=== PATIENT | female | born 1990 | race Two or more races ===

== ENCOUNTER 2017-10-07 07:42 | Emergency (ER) | payer MEDICAID ==
[~2017-10-07] VITALS: Ht 157.5 cm; Wt 90.7 kg
[2017-10-07] MEDS ORDERED: Acetaminophen 500mg (ES) tab ORAL ONE (08:00)
--- NOTE | 2017-10-07 08:00 | Emergency Room Report ---
History of Present Illness General Chief Complaint: Dizziness Source: Patient Present Illness HPI Patient states that she is 7 months . She is breast-feeding currently. She states that she woke up this morning and had bodyaches and chills. She states she also felt fatigued and has generalized weakness. She denies cough or congestion. She denies abdominal pain. She denies chest pain or shortness of breath. She denies dysuria or hematuria. She denies headache or neck pain. She does have multiple bodyaches. She states that she went to work but had to leave because she wasn't feeling well. She denies breast pain or tenderness or erythema. She has no other complaints. Allergies: Coded Allergies: No Known Allergies (Unverified , 10/07/17) Patient History Past Medical History: none, see triage record Past Surgical History: none Pertinent Family History: none Social History: Denies: smoking, alcohol use, drug use Last Menstrual Period: 10/03/17 Reviewed Nursing Documentation: PMH: Agreed; PSxH: Agreed Nursing Documentation-PMH Past Medical History: No Stated History Review of Systems All Other Systems: negative except mentioned in HPI Physical Exam Vital Signs Date Time Temp Pulse Resp B/P (MAP) Pulse Ox O2 Delivery O2 Flow Rate FiO2 10/07/17 07:47 99.5 105 19 108/73 96 Room Air 99.5 Sp02 EP Interpretation: reviewed, normal General Appearance: no apparent distress, alert, GCS 15, non-toxic Head: normocephalic, atraumatic Eyes: bilateral eye normal inspection, bilateral eye PERRL ENT: hearing grossly normal, normal pharynx, no angioedema, normal voice Neck: full range of motion, supple/symm/no masses Respiratory: chest non-tender, lungs clear, normal breath sounds, speaking full sentences Cardiovascular #1: regular rate, rhythm, no edema Gastrointestinal: normal bowel sounds, non tender, soft, non-distended, no guarding, no rebound Rectal: deferred Musculoskeletal: back normal, gait/station normal, normal range of motion, non- tender Neurologic: alert, oriented x3, responsive, motor strength/tone normal, sensory intact, speech normal Psychiatric: judgement/insight normal, memory normal, mood/affect normal, no suicidal/homicidal ideation Skin: normal color, no rash, warm/dry, well hydrated Medical Decision Making Diagnostic Impression: Primary Impression: Viral syndrome Additional Impression: Fever ER Course This patient has a clinical presentation consistent with viral syndrome. Symptoms are nonspecific. There are no red flags on physical exam that would make me concerned for serious illness. This includes no evidence of meningitis , intra-abdominal process that would make me concerned for appendicitis or diverticulitis or other surgical or emergency etiology. Overall, this patient' s presentation is benign and the patient is nontoxic. Laboratory workup is negative other than a leukocytosis. There is no evidence of an emergency medical condition. The patient is given close return precautions and followup instructions. Laboratory Tests Test 10/07/17 08:17 White Blood Count 17.9 K/UL (4.8-10.8) H Red Blood Count 4.93 M/UL (4.20-5.40) Hemoglobin 13.8 G/DL (12.0-16.0) Hematocrit 42.2 % (37.0-47.0) Mean Corpuscular Volume 86 FL (80-99) Mean Corpuscular Hemoglobin 28.0 PG (27.0-31.0) Mean Corpuscular Hemoglobin Concent 32.7 G/DL (32.0-36.0) Red Cell Distribution Width 13.2 % (11.6-14.8) Platelet Count 223 K/UL (150-450) Mean Platelet Volume 8.5 FL (6.5-10.1) Neutrophils (%) (Auto) 83.5 % (45.0-75.0) H Lymphocytes (%) (Auto) 9.9 % (20.0-45.0) L Monocytes (%) (Auto) 5.4 % (1.0-10.0) Eosinophils (%) (Auto) 0.6 % (0.0-3.0) Basophils (%) (Auto) 0.6 % (0.0-2.0) Urine Color Pale yellow Urine Appearance Clear Urine pH 6.5 (4.5-8.0) Urine Specific Floral 1.005 (1.005-1.035) Urine Protein Negative (NEGATIVE) Urine Glucose (UA) Negative (NEGATIVE) Urine Ketones Negative (NEGATIVE) Urine Occult Blood 3+ (NEGATIVE) H Urine Nitrite Negative (NEGATIVE) Urine Bilirubin Negative (NEGATIVE) Urine Urobilinogen Normal MG/DL (0.0-1.0) Urine Leukocyte Esterase Negative (NEGATIVE) Urine RBC 2-4 /HPF (0 - 2) H Urine WBC 0-2 /HPF (0 - 2) Urine Squamous Epithelial Cells Few /LPF (NONE/OCC) Urine Bacteria Occasional /HPF (NONE) Urine HCG, Qualitative Negative (NEGATIVE) Sodium Level 139 MMOL/L (136-145) Potassium Level 3.9 MMOL/L (3.5-5.1) Chloride Level 102 MMOL/L (98-107) Carbon Dioxide Level 26 MMOL/L (21-32) Anion Gap 11 mmol/L (5-15) Blood Urea Nitrogen 16 mg/dL (7-18) Creatinine 0.6 MG/DL (0.55-1.30) Estimate Glomerular Filtration Rate > 60 mL/min (>60) Glucose Level 97 MG/DL (74-106) Calcium Level 9.4 MG/DL (8.5-10.1) Total Bilirubin 0.5 MG/DL (0.2-1.0) Aspartate Amino Transferase (AST) 18 U/L (15-37) Alanine Aminotransferase (ALT) 28 U/L (12-78) Alkaline Phosphatase 117 U/L (46-116) H Total Creatine Kinase 93 U/L (26-308) Creatine Kinase MB 0.6 NG/ML (0.0-3.6) Creatine Kinase MB Relative Index 0.6 Troponin I 0.000 ng/mL (0.000-0.056) Total Protein 8.4 G/DL (6.4-8.2) H Albumin 4.0 G/DL (3.4-5.0) Globulin 4.4 g/dL Albumin/Globulin Ratio 0.9 (1.0-2.7) L EKG Diagnostic Results Rate: normal Rhythm: NSR ST Segments: no acute changes Rhythm Strip Diag. Results EP Interpretation: yes Rate: 100's Rhythm: no PVC's, no ectopy, other - S.tachycardia Last Vital Signs Date Time Temp Pulse Resp B/P (MAP) Pulse Ox O2 Delivery O2 Flow Rate FiO2 10/07/17 07:47 99.5 105 19 108/73 96 Room Air 99.5 Disposition: HOME, SELF-CARE Condition: Improved Scripts No Active Prescriptions or Reported Meds Bhavani Cavazos DO Oct 07, 2017 08:00
[2017-10-07 08:48] LABS: BASOPHILS % (AUTO) 0.6 % (0.0-2.0); EOSINOPHILS % (AUTO) 0.6 % (0.0-3.0); HEMATOCRIT 42.2 % (37.0-47.0); HEMOGLOBIN 13.8 G/DL (12.0-16.0); LYMPHOCYTES % (AUTO) 9.9 % (20.0-45.0); MEAN CORPUSCULAR VOLUME 86 FL (80-99); MONOCYTES % (AUTO) 5.4 % (1.0-10.0); NEUTROPHILS % (AUTO) 83.5 % (45.0-75.0); PLATELET COUNT 223 K/UL (150-450); RED BLOOD COUNT 4.93 M/UL (4.20-5.40); RED CELL DISTRIBUTION WIDTH 13.2 % (11.6-14.8); WHITE BLOOD COUNT 17.9 K/UL (4.8-10.8)
[2017-10-07 08:54] LABS: APPEARANCE,URINE CLEAR; BILIRUBIN, URINE NEGATIVE (NEGATIVE); COLOR,URINE PALE YELLOW; GLUCOSE, URINE (UA) NEGATIVE (NEGATIVE); KETONES,URINE NEGATIVE (NEGATIVE); LEUKOCYTE ESTERASE ,URINE NEGATIVE (NEGATIVE); NITRITE,URINE NEGATIVE (NEGATIVE); PH,URINE 6.5 (4.5-8.0); PROTEIN,URINE NEGATIVE (NEGATIVE); UROBILINOGEN,URINE NORMAL MG/DL (0.0-1.0)
[2017-10-07 08:55] LABS: ANION GAP 11 mmol/L (5-15); BLOOD UREA NITROGEN 16 mg/dL (7-18); CALCIUM 9.4 MG/DL (8.5-10.1); CARBON DIOXIDE 26 MMOL/L (21-32); CHLORIDE 102 MMOL/L (98-107); CREATININE 0.6 MG/DL (0.55-1.30); POTASSIUM 3.9 MMOL/L (3.5-5.1); SODIUM 139 MMOL/L (136-145)
[2017-10-07 09:08] LABS: ALANINE AMINOTRANSFERASE 28 U/L (12-78); ALBUMIN/GLOBULIN RATIO 0.9 (1.0-2.7); ALKALINE PHOSPHATASE 117 U/L (46-116); ASPARTATE AMINO TRANSFERASE 18 U/L (15-37); BILIRUBIN,TOTAL 0.5 MG/DL (0.2-1.0); CKMB 0.6 NG/ML (0.0-3.6); CREATINE KINASE 93 U/L (26-308)
[2017-10-07 09:09] VITALS: BP 103/73
[2017-10-07 09:38] VITALS: BP 103/73
--- NOTE | 2017-10-09 15:48 | Cardiology Report ---
APPROVED REPORT EKG Measurement Heart [id number] Sinus tachycardia Low voltage QRS Nonspecific ST and T wave abnormality Abnormal ECG
== END 2017-10-07 09:39 | disposition home or self-care (01) ==
LOC: EMR 08:05
DX: B34.9 Viral infection, unspecified (principal)
CPT/HCPCS: 36415; 80053; 81003; 81025; 82550; 82553; 84484; 85025; 93005; 96360; 99284

== ENCOUNTER 2018-09-30 09:53 | Emergency (ER) | payer MEDICAID ==
[~2018-09-30] VITALS: Ht 162.6 cm; Wt 102.1 kg
[2018-09-30 10:12] VITALS: BP 115/79
--- NOTE | 2018-09-30 10:13 | NUR ---
ED Nurse Note: pt walked in due to lower back pain started 8 days ago. pt denies trauma. pt complains of 8/10 pain from lower back to bilateral legs.. denies being . pt stated she took motrin but didnt help. will continue to monitor.
[2018-09-30] MEDS ORDERED: Cyclobenzaprine 10mg Tab ORAL ONE (10:30)
--- NOTE | 2018-09-30 10:37 | NUR ---
ED Nurse Note: pt was medicated as ordered and pt able to tolerate po meds.
--- NOTE | 2018-09-30 10:52 | NUR ---
ED Nurse Note: hillary seen and examined pt and discussed with pt the need to check for urine and xray for her lower back. will continue to monitor.
--- NOTE | 2018-09-30 10:53 | Emergency Room Report ---
History of Present Illness General Chief Complaint: Pain Source: Patient Present Illness HPI 28-year-old female, Estonian speaking only, history obtained using language line , reports she is been having low back pain for about 8 days, sometimes radiates down both legs, she was working with a previous job that required heavy lifting , reports she took ibuprofen with partial relief, denies any numbness, tingling , weakness, does report the pain is worse when she moves or bends over, she denies bowel bladder incontinence, urinary symptoms, fevers chills, nausea, vomiting, abdominal pain, or obvious injuries. Allergies: Coded Allergies: No Known Allergies (Unverified , 10/07/17) Patient History Limited by: language barrier, other - Language line used Past Medical History: see triage record Reviewed Nursing Documentation: PMH: Agreed; PSxH: Agreed Nursing Documentation-PMH Past Medical History: No Stated History Review of Systems All Other Systems: negative except mentioned in HPI Physical Exam Vital Signs Date Time Temp Pulse Resp B/P (MAP) Pulse Ox O2 Delivery O2 Flow Rate FiO2 09/30/18 09:58 98.1 89 17 115/79 (91) 99 Room Air Sp02 EP Interpretation: reviewed, normal General Appearance: no apparent distress, alert, non-toxic Head: normocephalic Eyes: bilateral eye normal inspection, bilateral eye PERRL, bilateral eye EOMI ENT: normal ENT inspection, hearing grossly normal, normal pharynx, no angioedema, normal voice, moist mucus membranes Neck: normal inspection, full range of motion, supple, supple/symm/no masses Respiratory: chest non-tender, lungs clear, normal breath sounds, chest symmetrical, palpation of chest normal Cardiovascular #1: normal peripheral pulses, regular rate, rhythm Cardiovascular #2: 2+ radial (R), 2+ radial (L) Gastrointestinal: normal inspection, non tender, soft, no mass, no guarding, no rebound Rectal: deferred Genitourinary: normal inspection, no CVA tenderness Musculoskeletal: back normal, gait/station normal, normal range of motion, non- tender, no calf tenderness, Juan's Sign negative, other - negative straight leg raising test B/L LE Neurologic: alert, responsive, communications programmer III-XII nml as tested, motor strength/tone normal, sensory intact, normal gait, speech normal, grossly normal Psychiatric: judgement/insight normal, memory normal, mood/affect normal Skin: no rash, normal inspection, warm/dry Lymphatic: no adenopathy Medical Decision Making Diagnostic Impression: Primary Impression: Low back pain ER Course Patient with no red flags for serious etiology of low back pain, normal exam, other than paraspinous muscle tenderness in her lower lumbar spine, suspect patient with possible herniated disc and sciatica-like presentation although straight leg raising test negative, versus just musculoskeletal spasm and strain , she requested a work note to allow her to go back to work without heavy lifting, I will provide this for her, and recommend ibuprofen and Flexeril. UA LE 1+, but few WBC and bacteria, will give macrobid rx, but doubt pyelonephritis. Upreg negative. Will dc home. Other X-Ray Diagnostic Results Other X-Ray Diagnostic Results : X-Ray ordered: Lumbar spine # of Views/Limited Vs Complete: Limited Indication: Pain EP Interpretation: Yes Interpretation: no dislocation, no soft tissue swelling, no fractures, nonspecific bowel gas, no sbo Impression: No acute disease Electronically Signed by: Erasto Walker MD Last Vital Signs Date Time Temp Pulse Resp B/P (MAP) Pulse Ox O2 Delivery O2 Flow Rate FiO2 09/30/18 10:12 98.1 89 17 115/79 99 Room Air Disposition: HOME, SELF-CARE Condition: Stable Scripts No Active Prescriptions or Reported Meds Referrals: NOT CHOSEN DELVIS/,REFERRING (PCP) ERASTO WALKER M.D Sep 30, 2018 10:53
[2018-09-30 11:01] LABS: APPEARANCE,URINE CLEAR; BILIRUBIN, URINE NEGATIVE (NEGATIVE); COLOR,URINE PALE YELLOW; GLUCOSE, URINE (UA) NEGATIVE (NEGATIVE); KETONES,URINE NEGATIVE (NEGATIVE); LEUKOCYTE ESTERASE ,URINE 1+ (NEGATIVE); NITRITE,URINE NEGATIVE (NEGATIVE); PH,URINE 6 (4.5-8.0); PROTEIN,URINE NEGATIVE (NEGATIVE); UROBILINOGEN,URINE NORMAL MG/DL (0.0-1.0)
[2018-09-30] MEDS ORDERED: IBUPROFEN600 MG ORAL (11:25)
[2018-09-30] MEDS ORDERED: CYCLOBENZAPRINE10 MG ORAL (11:25)
[2018-09-30] MEDS ORDERED: NITROFURANTOIN100 M2 ORAL (11:25)
[2018-09-30 12:15] VITALS: BP 115/79
--- NOTE | 2018-09-30 12:15 | NUR ---
ER DISCHARGE NOTE: Patient is cleared to be discharged per ERMD, pt is aox4, on room air, with stable vital signs. pt was given dc and prescription instructions, pt was able to verbalize understanding, pt id band removed without complications. pt is able to ambulate with steady gait. pt took all belongings.
--- NOTE | 2018-09-30 12:17 | Diagnostic Imaging Report ---
Indication: Lower back pain for about a days Technique: 3 views of the lumbar spine Comparison: None Findings: Bony alignment is normal. Vertebral body heights are preserved. Disc spaces are preserved. Pedicles are intact. Sacral arches are preserved. Sacroiliac joint spaces are preserved. The included extraspinal soft tissues are unremarkable Impression: Negative
== END 2018-09-30 12:15 | disposition home or self-care (01) ==
LOC: EMR 10:34
DX: M54.5 Low back pain (principal); M79.605 Pain in left leg; M79.604 Pain in right leg
CPT/HCPCS: 72020; 81003; 81025; 99283